=== PATIENT | female | born 1955 | race Caucasian/White ===

== ENCOUNTER 2024-09-18 09:35 | Outpatient (CLI) | payer BC | END 2024-09-18 09:36 | disposition home or self-care (01) | LOC: NAV RAD 09:35 | PROVIDERS: ATTEND Student in an Organized Health Care Education/Training Program | DX: M25.561 Pain in right knee (principal); M17.11 Unilateral primary osteoarthritis, right knee; M25.861 Other specified joint disorders, right knee ==

== ENCOUNTER 2025-01-10 08:57 | Outpatient (CLI) | payer BC ==
[2025-01-10] MEDS ORDERED: Iopamidol 370 76% 100 ML VIAL ONE (09:00)
== END 2025-01-10 08:58 | disposition home or self-care (01) ==
LOC: NAV CT 08:57
PROVIDERS: ATTEND Nurse Practitioner Family
DX: R59.9 Enlarged lymph nodes, unspecified (principal); E04.1 Nontoxic single thyroid nodule
CPT/HCPCS: 70491; Q9967